=== PATIENT | female | born 1995 | race Caucasian/White ===

== ENCOUNTER → 2016-07-30 | Outpatient (CLI) | payer OTHER ==
--- NOTE | 2016-07-30 14:42 | REP ---
Clinical: Anatomical evaluation. Comparison: 05/05/2016 . Findings: Examination demonstrates a single live intrauterine in variable presentation. motion is identified by technologist. Placenta is noted posteriorly and grade zero without evidence for placenta previa or abruption. Amniotic fluid volume is normal. Cervix measures 3.6 cm in length and appears closed. No evidence for nuchal cord. Gestational age by LMP 22 weeks 2 days with KAUSHIK 12/01/2016 . Gestational age by current measurements 21 weeks 6 days with KAUSHIK 12/04/2016 . FHR equals 150 beats per minute. BPD 4.9 cm 20 weeks 5 day HC 18.8 cm 21 weeks 1 day AC 17.9 cm 22 weeks 6 days FL 4.0 cm 22 weeks 6 days HL 3.4 cm 21 weeks 5 days HC/AC ratio 1.05 Estimated weight 513 grams ( 53rd percentile). Anatomical assessment demonstrates normal structures including cranium, choroid plexus, cavum, cerebellum/posterior fossa, facial features, lungs, four-chamber heart/ventricular outflow tracts, diaphragm, stomach, cord insertion/three-vessel cord, kidneys/bladder, spine, and extremities. Impression: Single live intrauterine in variable presentation demonstrating appropriate interval growth and normal anatomical assessment. Signed by Issac Villagomez MD 07/30/2016 02:33 P
== END ==
LOC: M RAD 13:34
PROVIDERS: ATTEND Advanced Practice Midwife
DX: Z34.82 Encounter for supervision of other normal pregnancy, second trimester (principal)

== ENCOUNTER 2016-11-28 12:19 | Outpatient (CLI) | payer OTHER ==
[~2016-11-28] VITALS: Ht 157.5 cm; Wt 50.0 kg
[2016-11-28 12:45] VITALS: BP 130/72
== END 2016-11-28 13:15 | disposition home or self-care (01) ==
LOC: M LDO 12:19
PROVIDERS: ATTEND Obstetrics & Gynecology
DX: O47.1 False labor at or after 37 completed weeks of gestation (principal); Z3A.39 39 weeks gestation of pregnancy; Z88.0 Allergy status to penicillin; Z88.8 Allergy status to other drugs, medicaments and biological substances

== ENCOUNTER 2016-11-28 15:45 | Inpatient (IN) | payer OTHER ==
[~2016-11-28] VITALS: Ht 157.5 cm; Wt 50.0 kg
[2016-11-28] MEDS ORDERED: LR 1,000 ML IV SCH (16:17)
[2016-11-28] MEDS ORDERED: LACTATED RINGER'S 1000 ML IV STA (16:17)
[2016-11-28 17:19] LABS: MEAN CORPUSCULAR HEMOGLOBIN 27.7 pg (27.0-33.0); MEAN CORPUSCULAR VOLUME 81.4 fl (80.0-96.0); RED CELL DISTRIBUTION WIDTH 13.3 % (11.5-14.5); WHITE BLOOD COUNT 14.6 K/mm3 (4.0-10.0)
[2016-11-28 17:48] VITALS: BP 232/113
[2016-11-28] MEDS ORDERED: MEASLES,MUMPS,RUBELLA VACCINE INJ (MMR-II) (90707) SC SCH (18:00)
[2016-11-28] MEDS ORDERED: ACETAMINOPHEN 500 MG TAB PO PRN (18:00)
[2016-11-28] MEDS ORDERED: IBUPROFEN 800 MG TAB PO PRN (18:00)
[2016-11-28] MEDS ORDERED: METHYLERGONOVINE MALEATE 0.2 MG TAB PO PRN (18:00)
[2016-11-28] MEDS ORDERED: DIBUCAINE 1% OINTMENT 30GM TOP PRN (18:00)
[2016-11-28] MEDS ORDERED: RHOGAM 300 MCG (1500 IU) INJ (J2790) IM SCH (18:00)
[2016-11-28] MEDS ORDERED: DOCUSATE SODIUM 100 MG CAP PO PRN (18:00)
[2016-11-28 18:04] VITALS: BP 117/59
[2016-11-28 18:20] VITALS: BP 128/65
[2016-11-28 18:42] VITALS: BP 123/79
[2016-11-28 19:37] VITALS: BP 128/67
[2016-11-28 20:28] VITALS: BP 133/86
[2016-11-29 06:00] VITALS: BP 121/71
[2016-11-29] MEDS: PRENATAL VITAMIN TAB PO SCH (07:39)
--- NOTE | 2016-11-29 11:35 | IPNPDOC ---
Text Note Date of Service The patient was seen on 11/29/16. NOTE PPD1 prog note States feeling well, no complaints. No heavy VB. Pain controlled. Voiding, ambulatory. Bonding well and bottle feeding. Plans on Nexplanon.. VSSAF CTAB RRR Ut at U-2, firm Ext no CCE a/p: Doing well, likely d/c tomorrow. Sessions Julio BELL, I+O VSJulio I+O Laboratory Tests 11/28/16 16:50 Red Blood Count 4.66, Mean Corpuscular Volume 81.4, Mean Corpuscular Hemoglobin 27.7, Mean Corpuscular Hemoglobin Concent 34.0, Red Cell Distribution Width 13.3 Vital Signs Date Time Temp Pulse Resp B/P (MAP) Pulse Ox O2 Delivery O2 Flow Rate FiO2 11/29/16 06:00 98.6 84 16 121/71 (88) 98 I&O- Last 24 Hours up to 6 AM 11/29/16 06:00 Output Total 850 ml Balance -850 ml SESSIONS,MILLY Santiago MD November 29, 2016 11:35
[2016-11-29 17:45] VITALS: BP 122/74
[2016-11-30 06:00] VITALS: BP 127/82
--- NOTE | 2016-11-30 06:03 | IPNPDOC ---
Text Note Date of Service The patient was seen on 11/30/16. NOTE PPD2 prog note States feeling well, no complaints. No heavy VB. Pain controlled. Voiding, ambulatory. Bonding well and brst feeding. Nexplanon for PPBC. VSSAF CTAB RRR Ut at U-2, firm Ext no CCE a/p: Doing well, d/c this AM Sessions VS,Julio, I+O VSJulio, I+O Vital Signs Date Time Temp Pulse Resp B/P (MAP) Pulse Ox O2 Delivery O2 Flow Rate FiO2 11/29/16 17:45 98.7 80 16 122/74 (90) 98 Room Air SESSIONS,MILLY Santiago MD November 30, 2016 06:03
--- NOTE | 2016-11-30 06:08 | DS.PDOC ---
Discharge Summary General Date of Admission November 28, 2016 at 16:06 Date of Discharge [id number] Discharge Summary PROCEDURES PERFORMED DURING STAY: spontaneous vaginal delivery ADMITTING DIAGNOSES: Labor DISCHARGE DIAGNOSES: 1. Healthy infant HOSPITAL COURSE: Admitted in active labor. Underwent an uncomplicated delivery. See delivery note. DISCHARGE MEDICATIONS: Standard meds, dispensed. Nexplanon for control Physical exam: see note from this morning LABORATORY DATA: Please see below. ACTIVITY: as tolerated. Nothing in vagina for 6 weeks. No bathing for 2 weeks , shower only. DIET: regular DISPOSITION:stable TIME SPENT ON DISCHARGE: Greater than 15 minutes. Sessions Vital Signs/I&Os Vital Signs Date Time Temp Pulse Resp B/P (MAP) Pulse Ox O2 Delivery O2 Flow Rate FiO2 11/29/16 17:45 98.7 80 16 122/74 (90) 98 Room Air Discharge Medications No Active Prescriptions or Reported Meds Allergies Coded Allergies: Amoxicillin (Verified Adverse Reaction, Mild, DIARRHEA AND VOMITING, ) Clavulanic Acid (Verified Adverse Reaction, Mild, DIARRHEA AND VOMITING, ) MILLY STEWARD MD November 30, 2016 06:08
[2016-11-30] MEDS: PRENATAL VITAMIN TAB PO SCH (08:19)
[2016-11-30] MEDS ORDERED: COLA100C3 PO (11:08)
[2016-11-30] MEDS ORDERED: ACET50TA PO (11:08)
[2016-11-30] MEDS ORDERED: PREN27TA3 PO (11:08)
[2016-11-30] MEDS ORDERED: DIBU1OIN TOP (11:08)
[2016-11-30] MEDS ORDERED: IBUP-1114 PO (11:08)
== END 2016-11-30 11:38 | disposition home or self-care (01) | DRG 775 ==
LOC: M LDO 15:45 → M LDI 16:06 → M OBS 20:08
PROVIDERS: ADMIT Advanced Practice Midwife; ATTEND Advanced Practice Midwife
PROC: 10E0XZZ Delivery of Products of Conception, External Approach (ICD-10-PCS; principal; 2016-11-28)
DX: O80 Encounter for full-term uncomplicated delivery (principal); Z37.0 Single live birth; Z88.0 Allergy status to penicillin; Z3A.39 39 weeks gestation of pregnancy

== ENCOUNTER 2017-09-03 06:50 | Emergency (ER) | payer OTHER ==
[2017-09-03] MEDS: ONDANSETRON 4 MG ORAL DISINTEGRATING TAB (S0181) PO (08:11)
[2017-09-03 08:25] LABS: BASO % 0.3 % (0.0-1.0); EOS % 0.2 % (0.0-3.0); HEMATOCRIT 46.4 % (36.0-47.0); HEMOGLOBIN 16.2 g/dl (12.0-16.0); IMMATURE GRANULOCYTE % 0.3 % (0-3.0); LYMPH # 0.5 10^3/uL (1.5-6.5); LYMPH % 3.6 % (24.0-44.0); MEAN CORPUSCULAR HEMOGLOBIN 28.8 pg (27.0-33.0); MEAN CORPUSCULAR HGB CONC 34.9 g/dl (32.0-36.5); MEAN CORPUSCULAR VOLUME 82.4 fl (80.0-96.0); MONO # 0.8 10^3/uL (0.0-0.8); NEUTROPHILS # 12.4 10^3/uL (1.8-7.7); NEUTROPHILS % 89.6 % (36.0-66.0); PLATELET COUNT, AUTOMATED 253 10^3/uL (150-450); RED BLOOD COUNT 5.63 10^6/uL (4.00-5.40); RED CELL DISTRIBUTION WIDTH 12.2 % (11.5-14.5); WHITE BLOOD COUNT 13.8 10^3/uL (4.0-10.0)
[2017-09-03 08:31] LABS: KETONE, URINE AUTO RFX TRACE mg/dL (NEGATIVE); MUCUS, URINE RFX MODERATE (NEGATIVE); NITRITE, URINE AUTO RFX NEGATIVE (NEGATIVE); RBC, URINE AUTO RFX 2 /HPF (0-3); SQUAM EPITHELIAL CELL UR AURFX 10 /HPF (0-6); WBC, URINE AUTO RFX 9 /HPF (0-3)
[2017-09-03 08:45] LABS: LEUKOCYTE ESTERASE UR AUTO RFX 1+ (NEGATIVE)
[2017-09-03 08:52] LABS: ALBUMIN 4.9 GM/DL (3.2-5.2); ALBUMIN/GLOBULIN RATIO 1.88 (1.00-1.93); ALKALINE PHOSPHATASE 62 U/L (45-117); ALT/SGPT 24 U/L (12-78); ANION GAP 8 MEQ/L (8-16); AST/SGOT 14 U/L (7-37); BILIRUBIN,DIRECT 0.2 MG/DL (0.0-0.2); BILIRUBIN,TOTAL 0.6 MG/DL (0.2-1.0); BLOOD UREA NITROGEN 21 MG/DL (7-18); CARBON DIOXIDE LEVEL 27 MEQ/L (21-32); CHLORIDE LEVEL 109 MEQ/L (98-107); CREATININE FOR GFR 0.57 MG/DL (0.55-1.30); GLOMERULAR FILTRATION RATE > 60.0 (>60); GLUCOSE, FASTING 120 MG/DL (70-100); POTASSIUM SERUM 4.2 MEQ/L (3.5-5.1); SODIUM LEVEL 144 MEQ/L (136-145); TOTAL PROTEIN 7.5 GM/DL (6.4-8.2)
== END 2017-09-03 09:47 | disposition home or self-care (01) ==
LOC: M ED 06:50
DX: A08.4 Viral intestinal infection, unspecified (principal); E86.0 Dehydration
CPT/HCPCS: 80076